=== PATIENT | male | born 1955 | race Caucasian/White ===

== ENCOUNTER 2019-02-14 06:24 | Day surgery (SDC) ==
--- NOTE | 2019-02-07 14:40 | EKG Report ---
Test Performed on : 02/07/2019 2:18:38 PM Test Reason : pat Blood Pressure : / mmHG Vent. Rate : 068 BPM Atrial Rate : 068 BPM P-R Int : 182 ms QRS Dur : 094 ms QT Int : 378 ms P-R-T Axes : 040 -02 051 degrees QTc Int : 401 ms Normal sinus rhythm. Normal ECG When compared with ECG of 24-AUG-2016 11:08, No significant change was found Confirmed by Jadon Velazquez MD ([id number]) on 02/08/2019 3:40:56 PM
[2019-02-07 14:47] LABS: HEMATOCRIT 42.7 % (42.0-52.0); HEMOGLOBIN 14.6 g/dL (14.0-18.0); MCH 29.7 PG (27-31); MCHC 34.2 g/dL (33-37); MPV 10.3 FL (7.4-10.4); RBC 4.91 XMIL (4.7-6.1); RDW 12.6 % (11.5-14.5); WBC 5.08 X1000 (4.8-10.8)
[2019-02-07 15:17] LABS: AGAP 10; BUN 16 mg/dL (8-22); CHLORIDE 101 mmol/L (98-107); COSMO 279; CREATININE 0.8 mg/dL (0.7-1.2); ESTIMATED GFR > 60; GLUCOSE 95 mg/dL (70-104); POTASSIUM 3.6 mmol/L (3.5-5.1); SODIUM 139 mmol/L (136-145); TCO2 28 mmol/L (25-35)
[2019-02-14] MEDS ORDERED: KEFZOL 1 GM/D5W 2 GM/100 ML IVPB ONE (07:06)
[2019-02-14] MEDS ORDERED: LR 1,000 ML ONE ×2 (07:06→09:51)
[2019-02-14] MEDS ORDERED: DIPRIVAN 1% ONE (07:11)
[2019-02-14] MEDS ORDERED: FENTANYL ONE (07:12)
[2019-02-14] MEDS ORDERED: XYLOCAINE-MPF 2% ONE (07:13)
[2019-02-14] MEDS ORDERED: QUELICIN (DOSE) ONE (07:14)
[2019-02-14] MEDS ORDERED: EPHEDRINE ONE ×2 (07:37→08:58)
[2019-02-14] MEDS ORDERED: B & O 15A SUPP ONE (08:29)
[2019-02-14] MEDS ORDERED: DECADRON ONE (08:58)
[2019-02-14] MEDS ORDERED: ZOFRAN ONE (08:58)
[2019-02-14] MEDS: DILAUDID ONE ×2 (09:51→09:54)
--- NOTE | 2019-02-14 10:25 | OPERATIVE NOTE ---
PROCEDURE DATE: 02/14/2019 SURGEON: Tom Wright MD PREOPERATIVE DIAGNOSIS: Enlarged prostate with obstructive voiding symptoms. POSTOPERATIVE DIAGNOSIS: Enlarged prostate with obstructive voiding symptoms. PROCEDURES PERFORMED: Cystoscopic exam and transurethral resection of the prostate. ANESTHESIA: General via laryngeal mask. FINDINGS: Cystoscopic exam: Urethra-greater than 21 Faroese without stricture. Prostate - coapting lateral lobes, elevated bladder neck, length approximately 4 to 4.5 cm. Bladder-normal ureteral orifices bilaterally. Grade 2 trabeculations. Small cellules throughout. No papillary lesions. No large diverticula. INDICATIONS FOR PROCEDURE: This 63-year-old male has a long history of obstructive and irritative voiding symptoms. He had been on maximum medical therapy but, is now having increasing problems. He presents for transurethral resection of the prostate. DESCRIPTION OF PROCEDURE: After informed consent was obtained from the patient, and him receiving IV antibiotics, he was taken to the main OR cystoscopy room, placed in the supine position. General anesthesia via laryngeal mask was achieved. He was then placed in a low lithotomy position, prepped and draped in the usual sterile fashion for cystoscopic exam. A 21-Faroese cystoscope was passed in the patient's urethra, prostate, and bladder findings noted above. The cystoscope was removed. A 25-Faroese continuous flow resectoscope sheath was placed. The thick gyrus loop electrode was placed. Both ureteral orifices were visualized as well as the verumontanum. The resection was started at the 06:00 position going from the level of bladder neck, level of the verumontanum, and proceeding in a counterclockwise direction to the 2:00 position. Resection was then started back at the 6:00 position, again going from the level of bladder neck to the level of the verumontanum, proceeding in a clockwise direction to the 10:00 position. Tissue from the anterior prostatic urethra was removed from the level of the bladder neck to level of the verumontanum between the 2:00 and 10:00 positions. Hemostasis was achieved with electrocautery. The bladder neck was incised back to periprostatic and perivesical fat at the 6:00 position. At completion, again both ureteral orifices were intact. The chips were removed from the bladder with the [employer] evacuators. A 22-Faroese [address] Louis catheter was placed. 30 mL of sterile water were placed in the Louis balloon. Continuous bladder irrigation of normal saline was started. The efflux was light pink. He tolerated the procedure well. Estimated blood loss 50 mL. He was taken to the recovery room in good condition. cc: Tom Wright MD
[2019-02-14] MEDS ORDERED: LABETALOL IV PRN (10:45)
[2019-02-14] MEDS ORDERED: B & O 15A SUPP PR PRN (10:45)
[2019-02-14] MEDS ORDERED: NORCO-10 PO PRN (10:45)
[2019-02-14] MEDS ORDERED: NORCO-7.5 PO PRN (10:45)
[2019-02-14] MEDS ORDERED: DITROPAN PO PRN (10:45)
[2019-02-14] MEDS ORDERED: BENADRYL LIQUID PO PRN (10:45)
[2019-02-14] MEDS ORDERED: NORCO-5 PO PRN (10:45)
[2019-02-14] MEDS ORDERED: LR 1,000 ML IV SCH (12:00)
[2019-02-14] MEDS ORDERED: VENTOLIN HFA INH PRN (14:54)
[2019-02-14 14:58] LABS: HEMATOCRIT 37.9 % (42.0-52.0); MCHC 34.3 g/dL (33-37); MCV 87.5 FL (81-99); MPV 10.2 FL (7.4-10.4); RBC 4.33 XMIL (4.7-6.1); RDW 12.6 % (11.5-14.5); WBC 6.02 X1000 (4.8-10.8)
[2019-02-14] MEDS: KEFZOL 2 GM/D5W 2 GM/50 ML IVPB IV SCH (16:59)
--- NOTE | 2019-02-14 19:56 | CONSULTATION ---
ADDENDUM: HISTORY OF PRESENT ILLNESS: Mr. Holden is a 63-year-old gentleman who has a history of BPH with obstructive and voiding symptoms, and was followed up by Dr. Wright and a decision was made for cystoscopic exam and transurethral resection of the prostate today. The patient successfully underwent the procedure, was sent to the surgical floor. However, a couple hours later, I understand the catheter was blocked, so the nurses work with it multiple times and got the flow going and then about an hour later, he started feeling like the whole room was getting dark. He had a tunnel vision. He became sweaty. His blood pressure at the time went down to about 54/36. At the same time, his pulse had also dropped to about 51. The patient was fluid resuscitated and hospitalist Services was called to help with management. CURRENT VITAL SIGNS: His blood pressure is 118/61, his pulse is 83, his respiration is 18, temperature 97.5 degrees. PHYSICAL EXAM: For most part is unremarkable. Mr. Holguin is currently asymptomatic. GI: Has a Louis catheter in place which is draining some serosanguineous fluid. Bladder irrigation system is also in place. HIS LABORATORIES: Lab works have all been reviewed. A repeat CBC is unremarkable. ASSESSMENT: 1. Hypotension associated with bradycardia secondary to vasovagal reaction. The patient has completely overcome this. Blood pressure has normalized. We are going to continue monitoring. 2. History of benign prostatic hyperplasia status post transurethral resection of the prostate. The patient is immediate post surgery. Will follow up with further recommendations from Urology. 3. History of hypertension. The patient normally takes hydrochlorothiazide at home. We will withhold this for today and reinstitute it tomorrow once he is hemodynamically stable. Please refer to the details of the consult note which has been dictated by the AUTO HIKER. cc: Kong Abraham MD
--- NOTE | 2019-02-14 20:00 | CONSULTATION ---
DATE OF CONSULTATION: 02/14/2019 CHIEF COMPLAINT: Medical consultation due to a hypotensive episode. The patient was status post his TURP this a.m. Blood pressure dropped several hours after arriving back to floor down to 54/36, now up to 109/56. HISTORY OF PRESENTING ILLNESS: This is a 63-year-old male who presented as a direct admit for a TURP procedure per Urology, Dr. Wright. The patient tolerated procedure well and was doing well, returned to floor. Around 10:15 this morning, blood pressures were running 130/73. Around 2:15 p.m., blood pressure dropped down to 54/36. Was given lactated Ringer's at 100 mL an hour. Blood pressure has come up to 109/56 and medical consultation was requested by urologist, so we will follow this patient throughout the remainder of his hospitalization. He is noted to have an indwelling Louis catheter with continuous irrigation, with some light pederson red urine in his Louis bag. Has noted some clots, but those are improving with the continuous irrigation at this time. PAST MEDICAL HISTORY: 1. Hypertension. 2. Osteomyelitis in his spine. 3. GERD. 4. BPH. PAST SURGICAL HISTORY: 1. Cholecystectomy. 2. Inner ear surgery. FAMILY HISTORY: Father had an ND. Mother had Alzheimer's. SOCIAL HISTORY: Currently lives with family. Denied any tobacco, alcohol, or illicit drug use. ALLERGIES: He had no known drug allergies. HOME MEDICATIONS: 1. He takes ProAir 1 puff inhalation p.r.n. 2. Lumigan 1 drop OP at bedtime. 3. Hydrochlorothiazide 25 mg p.o. daily. 4. Centrum Silver 1 p.o. daily. 5. Potassium 99 mg p.o. daily. 6. Cialis 5 mg p.o. daily. We are going to hold the hydrochlorothiazide and the Cialis at this time. LABORATORY DATA: White blood cell count of 6.02, hemoglobin 13, hematocrit 37.9, platelets 178,000. REVIEW OF SYSTEMS: He denied any fever, chills, blurred vision. He did have some dizziness when his blood pressure dropped, but that has resolved. Some diaphoresis also at that time that has resolved. Denied any chest pain, coughing, shortness of breath. Denied any abdominal pain, constipation, diarrhea, burning or hurting with urination. PHYSICAL EXAMINATION: Vital Signs: When he arrived this morning, he had a temperature of 99.4 degrees, pulse 72, respirations 16, blood pressure 130/71, saturating 94% on room air. His blood pressures declined a couple hours after arriving back to the floor, got as low as 54/36, currently back up to 109/56. General: This is a 63-year-old male who is lying in the bed and answers questions appropriately. HEENT: Normocephalic, atraumatic. Normal ENT inspection. Oropharynx and nares are clear. Eyes: Pupils are equal, round, reactive to light and accommodation. Extraocular movements are intact. Neck: Normal inspection. Normal range of motion. Lungs: Clear to auscultation bilaterally with equal lung expansion and chest wall movement. Heart: Regular rate and rhythm. No murmurs, rubs, or gallops. Abdomen: Soft, nontender, nondistended. Bowel sounds are present x4 quadrants. Genitourinary: Patient has indwelling Louis catheter with continuous irrigations, status post his TURP, draining a light pederson colored red urine. Musculoskeletal: He has 5/5 strength x4 extremities. Neurological: The cranial nerves 2 through 12 appear grossly intact. ASSESSMENT: 1. Status post transurethral resection of prostate. 2. Hypotension, resolved. 3. Gastroesophageal reflux disease. PLAN: 1. He was admitted to the surgical unit. 2. Has sequential compression devices. 3. Has indwelling Louis catheter with continuous irrigation. 4. Incentive spirometry. 5. Regular diet. 6. He is on cefazolin 2 g intravenously every 8 hours for 2 more bags. 7. Continue his pain regimen. 8. We will hold again his Cialis and his hydrochlorothiazide. 9. We will recheck CBC and BMP in the a.m. 10. I will continue to follow this patient throughout the remainder of his hospitalization. We thank you for the opportunity to follow this patient. Dictated by DYAN Laguna for Kong Abraham MD cc: DYAN Laguna MD
[2019-02-14] MEDS: PERIDEX MT SCH (20:46)
[2019-02-14] MEDS: COLACE PO SCH (20:46)
[2019-02-14] MEDS: PEPCID PO SCH (20:46)
[2019-02-14] MEDS ORDERED: PATIENT'S OWN MED BOTH EYES SCH (21:00)
[2019-02-15] MEDS: KEFZOL 2 GM/D5W 2 GM/50 ML IVPB IV SCH (01:04)
[2019-02-15] MEDS ORDERED: PHENERGAN IV PRN (03:37)
[2019-02-15] MEDS ORDERED: SODIUM CHLORIDE 0.9% INJ PRN (03:45)
[2019-02-15 07:43] VITALS: BP 115/63
[2019-02-15 07:49] LABS: HEMATOCRIT 35.6 % (42.0-52.0); HEMOGLOBIN 12.3 g/dL (14.0-18.0); MCH 30.2 PG (27-31); MCHC 34.6 g/dL (33-37); MCV 87.5 FL (81-99); MPV 10.7 FL (7.4-10.4); RBC 4.07 XMIL (4.7-6.1); RDW 12.7 % (11.5-14.5); WBC 12.71 X1000 (4.8-10.8)
[2019-02-15] MEDS: PEPCID PO SCH (08:37)
[2019-02-15] MEDS: COLACE PO SCH (08:37)
[2019-02-15] MEDS: PERIDEX MT SCH (08:38)
[2019-02-15 08:40] LABS: AGAP 12; BUN 13 mg/dL (8-22); CALCIUM 8.4 mg/dL (8.8-10.2); CHLORIDE 101 mmol/L (98-107); COSMO 279; ESTIMATED GFR > 60; GLUCOSE 115 mg/dL (70-104); POTASSIUM 3.3 mmol/L (3.5-5.1); SODIUM 139 mmol/L (136-145); TCO2 26 mmol/L (25-35)
[2019-02-15] MEDS ORDERED: HYDROCHLOROTHIAZIDE PO SCH (09:00)
[2019-02-15] MEDS ORDERED: PATIENT'S OWN MED PO SCH ×2 (09:00)
[2019-02-15] MEDS ORDERED: CENTRUM SILVER PO SCH (09:00)
[2019-02-15] MEDS ORDERED: XYLOCAINE 2% JELLY UROJECT UR ONE (10:45)
--- NOTE | 2019-02-15 19:34 | PROGRESS NOTE ---
DATE: 02/15/2019 SUBJECTIVE: The patient has been evaluated by Dr. Abraham yesterday due to hypotension associated with bradycardia secondary to vasovagal reaction. He has a history of benign prostatic hyperplasia status post TURP. It looks like this patient is doing fine. Vital signs were stable, and this patient has been discharged today around noon by Dr. Wright, his primary care doctor. When I went to the room this patient was already gone so I could not evaluate the patient today. cc: Junior Alexandra MD
== END 2019-02-15 13:38 | disposition home or self-care (01) ==
LOC: OR 06:24 → 4N 06:24 → OR 02-15 13:38
PROVIDERS: ATTEND Urology
PROC: UR.TURP (2019-02-14 08:18)